=== PATIENT | male | born 1960 | race Asian ===

== ENCOUNTER → 2017-04-01 | Outpatient (CLI) | payer BC ==
[~2017-04-01] MED LIST: CPRDXOT OT; FLX10 PO; LIDOCAINE HCL 2% 2 ML VIAL (20MG/ML) ONE; LRT5 PO; OPTIRAY 320 IV PRN; PROPOFOL IV EMULSION 10 MG/ML 20 ML VIAL IV ONE; SIMV20TA2 PO
--- NOTE | 2017-04-01 12:50 | DIAGNOSTIC IMAGING REPORT ---
CT ABD/PELVIS IV AND ORAL CONT CLINICAL HISTORY: HX CLL WITH ABDOMINAL PAIN LEFT LOWER QUADRANT ABDOMINAL PAIN COMPARISON STUDY: 01/18/2010 TECHNIQUE: Following the IV administration of 93 mL of Optiray-320, CT scan of the abdomen and pelvis was performed from the lung bases to the proximal femurs. Images are reviewed in the axial, sagittal, and coronal planes. IV contrast was administered without complication. CT DOSE: 461.37 mGycm FINDINGS: Lower chest: The heart is normal in size and configuration, without pericardial effusion. The lung bases and pleural spaces are clear. Liver: The contrast-enhanced liver is normal in size, contour, and attenuation. There is no intrahepatic biliary ductal dilatation. The hepatic veins and portal veins are patent. Gallbladder: Unremarkable. Spleen: Normal in size and attenuation. Pancreas: Unremarkable. Adrenal glands: Unremarkable. Kidneys: There is symmetric renal cortical enhancement. The kidneys are normal in size without hydronephrosis. Bowel: There are no transition zones indicate bowel obstruction. There is no evidence of acute diverticulitis. There is mild fecal retention. There are no findings to indicate acute appendicitis. Peritoneum: There is no intraperitoneal free air or abdominal ascites. There are small fat-containing inguinal hernias unchanged the preceding study. Vasculature: The abdominal aorta is normal in course and caliber. Adenopathy: None. Pelvic viscera: The bladder, and pelvic viscera are unremarkable. Skeletal structures: No destructive osseous lesions are seen. IMPRESSION: 1. No evidence of bowel obstruction. No evidence of free air 2. No acute inflammatory changes. No evidence of acute appendicitis. No evidence of acute diverticulitis 3. No evidence of pathologic adenopathy 4. Mild fecal retention Electronically signed by: Dyllan Del Rio M.D. 04/01/2017 12:49 PM Dictated Date/Time: 04/01/2017 12:44 PM
== END | disposition home or self-care (01) ==
LOC: C.CTS 11:34
PROVIDERS: ATTEND Internal Medicine Hematology & Oncology
DX: C91.10 Chronic lymphocytic leukemia of B-cell type not having achieved remission (principal)

== ENCOUNTER 2018-05-18 08:11 | Emergency (ER) | payer OTHER ==
[~2018-05-18] VITALS: Ht 165.1 cm; Wt 65.5 kg
[~2018-05-18 08:11] MED LIST changes: -LIDOCAINE HCL 2% 2 ML VIAL (20MG/ML) ONE; -OPTIRAY 320 IV PRN; -PROPOFOL IV EMULSION 10 MG/ML 20 ML VIAL IV ONE
[2018-05-18 08:14] VITALS: TEMP 36.6; Ht 165.1 cm; Wt 65.5 kg
[2018-05-18] MEDS ORDERED: KETOROLAC TROMETHAMINE 60 MG/2 ML VIAL IM STA (08:37)
--- NOTE | 2018-05-18 08:41 | EMERGENCY ROOM VISIT NOTE ---
ED Visit Note First contact with patient: 08:26 CHIEF COMPLAINT: Shoulder pain HISTORY OF PRESENT ILLNESS: This 57-year-old male patient presents to the emergency department by private vehicle complaining of pain in the left shoulder for the past 2 weeks, but has become worse for the past 3-4 days. The patient states that prior to the pain starting, he was doing a lot of work pushing a wheelbarrow and doing some heavy lifting. There is limitation of motion of the arm because of the pain, and he states that he is unable to raise the arm above the level of his shoulder due to pain and feeling weak in the shoulder. The pain is moderate, constant and increases with motion of the hand and arm. The patient states the pain is throbbing and aching and 9/10. The patient has taken Advil with some relief of the pain, but has not taken any medications for the pain today. No previous significant previous shoulder disease or injury. No numbness or tingling. No neck or back pain. No chest pain or shortness of breath. No dizziness or syncope. No abdominal pain or nausea/vomiting. No cough. He is right-hand dominant. REVIEW OF SYSTEMS: A 6 system review of systems was performed with positives and pertinent negatives in the HPI. ALLERGIES: No known allergies. MEDICATIONS: Reviewed in chart, see below. PMH: Hyperlipidemia SOCIAL HISTORY: Lives at home. He denies tobacco use. PHYSICAL EXAM: Vital Signs: Reviewed nurse's notes, vital signs stable. GENERAL : Pleasant and cooperative, in no acute distress, but appears to be in pain, well-developed, well-nourished. MUSCULOSKELETAL: There is no deformity in the contour of the left shoulder and there are no magy deformities noted. There is no sulcus sign. There is tenderness over the anterior and superior area of the left shoulder. The patient's range of motion is limited due to pain. Supraspinatus strength 4/5. There is no clavicle tenderness. No tenderness of the humerus, elbow, wrist, or hand. Card Table Attendant strength 5/5. Radial pulse 2+. NECK: No tenderness to palpation over the cervical spine. Full range of motion of the neck without pain. HEART: Regular rate and rhythm without murmurs gallops or rubs. LUNGS: Clear to auscultation bilaterally without wheezes, rales or rhonchi. No accessory muscle use. No retractions. NEURO: The patient is alert and oriented to person, place, and time. Normal sensation to light and sharp touch. Capillary refill less than 2 seconds. IMAGING: L SHOULDER MIN 2 VIEWS ROUTINE CLINICAL HISTORY: Left shoulder pain. COMPARISON: None FINDINGS: Alignment of the left shoulder is anatomic. There is no fracture or suspicious lesion. Note is made of mild to moderate osteoarthritis of the left glenohumeral joint. IMPRESSION: 1. No acute fracture or dislocation within the left shoulder. 2. Mild to moderate osteoarthritis of the left glenohumeral joint. EMERGENCY DEPARTMENT COURSE: I examined the patient. Differential diagnosis includes muscular sprain/strain, tendinitis, bursitis, rotator cuff injury, fracture, dislocation, among others. Patient was given Motrin and an ice pack for pain. An X-ray of the left shoulder was reviewed by myself and read by the radiologist and shows no acute fracture or dislocation. Patient was placed in an arm sling under my supervision and was in satisfactory position, neurovascularly intact upon recheck. Patient was encouraged to follow up with an orthopedic surgeon, and was given strict return precautions should his symptoms worsen, he verbalized understanding. Patient was discharged home in stable condition and ambulatory. Current/Historical Medications Scheduled Rosuvastatin Calcium (Crestor), 5 MG PO EVERY OTHER DAY Allergies Coded Allergies: No Known Allergies (Unverified , 05/18/18) Vital Signs Date Time Temp Pulse Resp B/P (MAP) Pulse Ox O2 Delivery O2 Flow Rate FiO2 05/18/18 09:24 62 20 121/76 98 Room Air 05/18/18 08:14 36.6 71 18 123/81 100 Room Air Medications Administered Medications (Trade) Dose Ordered Sig/Carla Route Start Time Stop Time Status Last Admin Dose Admin Ketorolac Tromethamine (Toradol Inj) 60 mg NOW STAT IM 05/18/18 08:37 05/18/18 08:39 DC 05/18/18 08:51 60 MG Departure Information Impression Primary Impression: Left shoulder pain Dispostion Home / Self-Care Condition GOOD Referrals Denis Mejias MD Patient Instructions ED Shoulder Pain MING, Tiffany [facility] Additional Instructions DISCHARGE INSTRUCTIONS & TREATMENT: You have been evaluated and treated in the emergency department today for your left shoulder pain. X-rays today do not show any fractures. Rest the arm in a sling until the pain subsides. Alternate ice and heat to the shoulder intermittently and frequently over the next 24 hours. Ibuprofen 600 mg and Tylenol 650 mg every 6 hours if needed for pain. For best results, alternate between ibuprofen and Tylenol every 3-4 hours. Follow-up with the orthopedic surgeon in the next week. Call for an appointment. Please return to the emergency department for any worsening symptoms, including severe worsening pain, severe swelling in the shoulder, new loss of feeling or movement in the arm, or any other concerns. Work Instructions Return To Work: 2 days Problem Qualifiers Primary Impression: Left shoulder pain Chronicity: acute Qualified Codes: M25.512 - Pain in left shoulder
[2018-05-18] MEDS ORDERED: ROSU5TAB PO (08:55)
--- NOTE | 2018-05-18 09:10 | DIAGNOSTIC IMAGING REPORT ---
L SHOULDER MIN 2 VIEWS ROUTINE CLINICAL HISTORY: Left shoulder pain. COMPARISON: None FINDINGS: Alignment of the left shoulder is anatomic. There is no fracture or suspicious lesion. Note is made of mild to moderate osteoarthritis of the left glenohumeral joint. IMPRESSION: 1. No acute fracture or dislocation within the left shoulder. 2. Mild to moderate osteoarthritis of the left glenohumeral joint. Electronically signed by: Wallace Stephen M.D. 05/18/2018 9:09 AM Dictated Date/Time: 05/18/2018 9:08 AM
[2018-05-18 09:24] VITALS: BP 121/76; PULSE 62; O2SAT 98
== END 2018-05-18 10:04 | disposition home or self-care (01) ==
LOC: C.EDB 08:15 → MERGE 08:15 → C.EDA 10:04
DX: M25.512 Pain in left shoulder (principal); M19.012 Primary osteoarthritis, left shoulder